=== PATIENT | female | born 1990 | race American Indian/Alaskan Native ===

== ENCOUNTER 2018-09-04 18:50 | Emergency (ER) | payer OTHER ==
[2018-09-04 18:58] VITALS: BP 143/87
--- NOTE | 2018-09-04 19:44 | Emergency Department Report ---
Abscess Boil HPI - HPI Chief Complaint: Skin/Abscess/Foreign Body Stated Complaint: BOIL Time Seen by Provider: 09/04/18 19:39 Duration: 5 Days Location: Lower Extremity Severity: Moderate History: Yes Pain, Yes Purulent Drainage, No Fever, No Numbness, No Foreign Body, No Previous History, No Insect Bite HPI: Patient 28-year-old [place] female history obesity hypertension diabetes abscesses recurrent presents for left thigh abscess , 2 cm for the past 3 days similar to pain. Drainage is no fever no chills requesting I&D of abscess currently on amoxicillin history of allergy to clindamycin Home Medications: Previous Rx's Medication Instructions Recorded Last Taken Type Sulfamethoxazole/Trimethoprim 1 each PO BID 14 Days #28 tablet 09/04/18 Unknown Rx [Bactrim DS TAB] traMADol [Ultram] 50 mg PO Q6HR PRN #12 tablet 09/04/18 Unknown Rx Allergies/Adverse Reactions: Allergies Allergy/AdvReac Type Severity Reaction Status Date / Time clindamycin Allergy Unknown Verified 09/04/18 18:58 ED Review of Systems ROS: Stated complaint: BOIL Other details as noted in HPI Constitutional: denies: chills, fever Eyes: denies: eye pain, eye discharge, vision change ENT: denies: ear pain, throat pain Respiratory: denies: cough, shortness of breath, wheezing Cardiovascular: denies: chest pain, palpitations Endocrine: no symptoms reported Gastrointestinal: denies: abdominal pain, nausea, diarrhea Genitourinary: denies: urgency, dysuria, discharge Musculoskeletal: denies: back pain, joint swelling, arthralgia Skin: lesions (abscess left inner thigh x 5 days ) ED Past Medical Hx - Past Medical History Hx Diabetes: Yes - Surgical History Past Surgical History?: No - Social History Smoking Status: Never Smoker Substance Use Type: None - Medications Home Medications: Home Medications Medication Instructions Recorded Confirmed Last Taken Type Sulfamethoxazole/Trimethoprim 1 each PO BID 14 Days #28 tablet 09/04/18 Unknown Rx [Bactrim DS TAB] traMADol [Ultram] 50 mg PO Q6HR PRN #12 tablet 09/04/18 Unknown Rx ED Abscess Boil Physical Exam - Exam General: Vital signs noted. No distress. Alert and acting appropriately. Size: 2 cm Exam: Yes Tenderness, Yes Fluctuance, Yes Surrounding Cellulites/Erythema, Yes Normal Neurologic Exam, Yes Normal Circulation, No Lymphangitis, No Crepitation, No Heart Murmur Exam: left inner thigh abscess 1x2 cm erythema fluctant, no fever. no drainage I & D Note - I & D Note I & D Note: Left thigh abscess 1 x 2 cm fluctuant erythema pain with Betadine solution anesthesia 1% lidocaine plain 2 mL incision with 11 blade scalpel 1 moderate purulent output . wound irrigated wtih 60 mL of sterile saline patient refuses back packing sterile dressing applied mildly bleeding is controlled p atient given wound care instructions patient verbalized understanding of same patient tolerated procedure with minimal distress ED Course Vital Signs 09/04/18 18:53 Temperature 98.5 F Pulse Rate 113 H Respiratory 18 Rate Blood Pressure 143/87 O2 Sat by Pulse 98 Oximetry Critical care attestation.: If time is entered above; I have spent that time in minutes in the direct care of this critically ill patient, excluding procedure time. ED Medical Decision Making - Medical Decision Making Left thigh abscess see procedure note we discussed controlled patient given wound care instructions prescribed Bactrim by mouth twice a day for 14 days patient will follow with PCP in 2 days for wound check sitz baths daily dressing changes return to emergency department should symptoms worsen vital signs are noted patient refuses packing refuses IV fluids given pain medication and first dose of by mouth antibiotics patient DC'd home in stable condition at this time ED Disposition Clinical Impression: Abscess Disposition: DC-01 TO HOME OR SELFCARE Is pt being admited?: No Does the pt Need Aspirin: No Condition: Stable Instructions: Abscess (ED) Prescriptions: Sulfamethoxazole/Trimethoprim [Bactrim DS TAB] 1 each PO BID 14 Days #28 tablet traMADol [Ultram] 50 mg PO Q6HR PRN #12 tablet PRN Reason: Pain Referrals: PRIMARY CARE, [Primary Care Provider] - 3-5 Days [facility] [Outside] - 3-5 Days Forms: Work/School Release Form(ED) Time of Disposition: 19:50
[2018-09-04] MEDS ORDERED: ULTRAM PO ONE (19:45)
[2018-09-04] MEDS ORDERED: BACTRIM DS PO ONE (19:51)
[2018-09-04] MEDS ORDERED: BACTRIM DS ONE (19:55)
[2018-09-04] MEDS ORDERED: BACTRIM DS PO SCH (22:00)
== END 2018-09-04 19:59 | disposition home or self-care (01) ==
LOC: ED 18:50
DX: L02.416 Cutaneous abscess of left lower limb (principal); Z88.1 Allergy status to other antibiotic agents
CPT/HCPCS: 99282

== ENCOUNTER 2019-06-08 12:42 | Emergency (ER) | payer SELFPAY ==
[2019-06-08 13:53] VITALS: BP 138/95
--- NOTE | 2019-06-08 13:59 | Emergency Department Report ---
ED ENT HPI - General Chief complaint: Skin/Abscess/Foreign Body Stated complaint: LFT SIDE TOOTH ABCESS/PAIN Time Seen by Provider: 06/08/19 13:50 Source: patient Mode of arrival: Ambulatory Limitations: No Limitations - History of Present Illness MD complaint: tooth pain -: week(s) (2) Location: tooth # Severity: moderate Quality: aching, dull Consistency: constant Improves with: none Worsens with: none Context- Dental: history of dental caries, trauma Associated Symptoms: toothache. denies: sore throat, tinnitus, discharge from ear, rhinorrhea - Related Data Previous Rx's Medication Instructions Recorded Last Taken Type Sulfamethoxazole/Trimethoprim 1 each PO BID 14 Days #28 tablet 09/04/18 Unknown Rx [Bactrim DS TAB] traMADol [Ultram] 50 mg PO Q6HR PRN #12 tablet 09/04/18 Unknown Rx Amoxicillin [Amoxicillin TAB] 875 mg PO BID #20 tablet 06/08/19 Unknown Rx Chlorhexidine Mouthwash [Peridex] 15 ml MM BID #1 bottle 06/08/19 Unknown Rx Ketorolac [Toradol] 10 mg PO Q6H PRN #15 tablet 06/08/19 Unknown Rx Lidocaine Viscous 2% 5 ml MM Q3H PRN #120 udc 06/08/19 Unknown Rx Allergies Allergy/AdvReac Type Severity Reaction Status Date / Time clindamycin Allergy Unknown Verified 09/04/18 18:58 ED Dental HPI - General Chief complaint: Skin/Abscess/Foreign Body Stated complaint: LFT SIDE TOOTH ABCESS/PAIN Time Seen by Provider: 06/08/19 13:50 Source: patient Mode of arrival: Ambulatory Limitations: No Limitations - Related Data Previous Rx's Medication Instructions Recorded Last Taken Type Sulfamethoxazole/Trimethoprim 1 each PO BID 14 Days #28 tablet 09/04/18 Unknown Rx [Bactrim DS TAB] traMADol [Ultram] 50 mg PO Q6HR PRN #12 tablet 09/04/18 Unknown Rx Amoxicillin [Amoxicillin TAB] 875 mg PO BID #20 tablet 06/08/19 Unknown Rx Chlorhexidine Mouthwash [Peridex] 15 ml MM BID #1 bottle 06/08/19 Unknown Rx Ketorolac [Toradol] 10 mg PO Q6H PRN #15 tablet 06/08/19 Unknown Rx Lidocaine Viscous 2% 5 ml MM Q3H PRN #120 udc 06/08/19 Unknown Rx Allergies Allergy/AdvReac Type Severity Reaction Status Date / Time clindamycin Allergy Unknown Verified 09/04/18 18:58 ED Review of Systems ROS: Stated complaint: LFT SIDE TOOTH ABCESS/PAIN Other details as noted in HPI Comment: All other systems reviewed and negative ED Past Medical Hx - Past Medical History Previous Medical History?: Yes Hx Diabetes: Yes - Surgical History Past Surgical History?: No - Social History Smoking Status: Never Smoker Substance Use Type: Alcohol - Medications Home Medications: Home Medications Medication Instructions Recorded Confirmed Last Taken Type Sulfamethoxazole/Trimethoprim 1 each PO BID 14 Days #28 tablet 09/04/18 Unknown Rx [Bactrim DS TAB] traMADol [Ultram] 50 mg PO Q6HR PRN #12 tablet 09/04/18 Unknown Rx Amoxicillin [Amoxicillin TAB] 875 mg PO BID #20 tablet 06/08/19 Unknown Rx Chlorhexidine Mouthwash [Peridex] 15 ml MM BID #1 bottle 06/08/19 Unknown Rx Ketorolac [Toradol] 10 mg PO Q6H PRN #15 tablet 06/08/19 Unknown Rx Lidocaine Viscous 2% 5 ml MM Q3H PRN #120 udc 06/08/19 Unknown Rx ED Physical Exam - General Limitations: No Limitations General appearance: alert, in no apparent distress - Head Head exam: Present: atraumatic, normocephalic - Eye Eye exam: Present: normal appearance - ENT ENT exam: Present: mucous membranes moist, other (dental caries with dental fracture with adjacent gingival erythema with tender onpalpation. airway patent) - Neck Neck exam: Present: normal inspection - Respiratory Respiratory exam: Present: normal lung sounds bilaterally. Absent: respiratory distress - Cardiovascular Cardiovascular Exam: Present: regular rate, normal rhythm. Absent: systolic murmur, diastolic murmur, rubs, gallop - GI/Abdominal GI/Abdominal exam: Present: soft, normal bowel sounds - Extremities Exam Extremities exam: Present: normal inspection - Back Exam Back exam: Present: normal inspection - Neurological Exam Neurological exam: Present: alert, oriented X3 - Psychiatric Psychiatric exam: Present: normal affect, normal mood - Skin Skin exam: Present: warm, dry, intact, normal color. Absent: rash ED Course Vital Signs 06/08/19 13:50 Temperature 98.6 F Pulse Rate 96 H Respiratory 16 Rate Blood Pressure 138/95 O2 Sat by Pulse 96 Oximetry Critical care attestation.: If time is entered above; I have spent that time in minutes in the direct care of this critically ill patient, excluding procedure time. ED Disposition Clinical Impression: Dentalgia, Dental caries Disposition: - TO HOME OR SELFCARE Is pt being admited?: No Does the pt Need Aspirin: No Condition: Stable Instructions: Toothache (ED), Dental Caries (ED) Prescriptions: Amoxicillin [Amoxicillin TAB] 875 mg PO BID #20 tablet Lidocaine Viscous 2% 5 ml MM Q3H PRN #120 udc PRN Reason: Pain, Moderate (4-6) Chlorhexidine Mouthwash [Peridex] 15 ml MM BID #1 bottle Ketorolac [Toradol] 10 mg PO Q6H PRN #15 tablet PRN Reason: Pain Referrals: [facility] [Outside] - 3-5 Days
== END 2019-06-08 15:31 | disposition home or self-care (01) ==
LOC: ED 12:42
DX: K02.9 Dental caries, unspecified (principal); E11.9 Type 2 diabetes mellitus without complications
CPT/HCPCS: 99282

== ENCOUNTER 2020-01-17 11:04 | Emergency (ER) | payer OTHER ==
[2020-01-17 11:22] VITALS: BP 116/73
--- NOTE | 2020-01-17 11:49 | Event Note ---
ED Screening Note ED Screening Note: states that she was constipated for two days states she took a laxative has now been having diarrhea she states now she has rectal pain she states there is an odor to her diarrhea she denies any rectal bleeding she denies any hematochezia no dysuria PMHx pre DM allergy: clindamycin LNMP: 3 months, irregular cycles This initial assessment/diagnostic orders/clinical plan/treatment(s) is/are subject to change based on patients health status, clinical progression and re- assessment by fellow clinical providers in the ED. Further treatment and workup at subsequent clinical providers discretion. Patient/guardian urged not to elope from the ED as their condition may be serious if not clinically assessed and managed. Initial orders include: labs, UA
[2020-01-17 12:26] LABS: Basophils # (Auto) 0.1 K/mm3 (0.0-0.1); Basophils % (Auto) 0.9 % (0.0-1.8); Eosinophils % (Auto) 0.2 % (0.0-4.3); Lymphocytes # (Auto) 3.1 K/mm3 (1.2-5.4); Lymphocytes % (Auto) 21.7 % (13.4-35.0); Mean Corpuscular HGB Conc 30 % (30-34); Mean Corpuscular Volume 79 fl (79-97); Monocytes # (Auto) 0.9 K/mm3 (0.0-0.8); Monocytes % (Auto) 6.2 % (0.0-7.3); Platelet Count 321 K/mm3 (140-440); Red Blood Count 5.11 M/mm3 (3.65-5.03)
[2020-01-17 12:30] LABS: Bacteria,Urine 1+ /HPF (Negative); Bilirubin,Urine NEG (Negative); Blood,Urine MOD (Negative); Color,Urine Yellow (Yellow); Mucus,Urine 2+ /HPF; Protein,Urine <15 mg/dL mg/dL (Negative); Urobilinogen,Urine < 2.0 mg/dL (<2.0)
[2020-01-17 12:39] LABS: Hematocrit 40.3 % (30.3-42.9); Hemoglobin 12.2 gm/dl (10.1-14.3)
[2020-01-17 12:47] LABS: Alanine Aminotransferase 19 units/L (7-56); Albumin 3.7 g/dL (3.9-5); BUN/Creatinine Ratio 18; Blood Urea Nitrogen 9 mg/dL (7-17); Calcium 9.5 mg/dL (8.4-10.2); Hemolysis Index 2
--- NOTE | 2020-01-17 14:11 | Emergency Department Report ---
ED Abdominal Pain HPI - General Chief Complaint: Rectal Pain Stated Complaint: ABD PAIN/ PUI?: No Time Seen by Provider: 01/17/20 11:45 Source: patient Mode of arrival: Ambulatory Limitations: No Limitations - History of Present Illness Initial Comments: Patient is a very pleasant 29-year-old -Irish female that comes to the ER today complaining of rectal pain. Patient states that she had constipation for several days and then her mother gave her chocolate Ex-Lax. She states she then got some diarrhea and has had some rectal pain associated with it. Patient has no history of hemorrhoids. Patient denies bloody stools. Patient denies chest pain, shortness of breath, fever, chills, nausea or vomiting. She denies known exposure to somebody with COVID or other infectious disease. Patient's last menstrual cycle was 3 months ago. Patient is obese. She states that she has been told she is prediabetic. Rogers francine, she was never given any instructions or medications. Her mother does have a history of diabetes. Severity: mild Severity scale (0 -10): 8 Associated Symptoms: diarrhea, constipation. denies: denies other symptoms, nausea, vomiting, fever, chills, dysuria, hematemesis, hematochezia, melena, hematuria, anorexia, syncope - Related Data LMP (females 10-50): other Previous Rx's Medication Instructions Recorded Last Taken Type Fluconazole (Nf) [Diflucan TAB] 150 mg PO ONCE #1 tablet 01/17/20 Unknown Rx Sulfamethoxazole/Trimethoprim 1 each PO BID #10 tablet 01/17/20 Unknown Rx [Bactrim DS TAB] metFORMIN [Glucophage] 500 mg PO BID #20 tablet 01/17/20 Unknown Rx Allergies Allergy/AdvReac Type Severity Reaction Status Date / Time clindamycin Allergy Unknown Verified 01/17/20 11:18 ED Review of Systems ROS: Stated complaint: ABD PAIN/ Other details as noted in HPI Comment: All other systems reviewed and negative ED Past Medical Hx - Past Medical History Previous Medical History?: Yes Hx Diabetes: No (pre dm) Additional medical history: obese - Surgical History Past Surgical History?: No - Family History Family history: other (mom has dm ii; dad htn) - Social History Smoking Status: Never Smoker Substance Use Type: Alcohol - Medications Home Medications: Home Medications Medication Instructions Recorded Confirmed Last Taken Type Fluconazole (Nf) [Diflucan TAB] 150 mg PO ONCE #1 tablet 01/17/20 Unknown Rx Sulfamethoxazole/Trimethoprim 1 each PO BID #10 tablet 01/17/20 Unknown Rx [Bactrim DS TAB] metFORMIN [Glucophage] 500 mg PO BID #20 tablet 01/17/20 Unknown Rx ED Physical Exam - General Limitations: No Limitations General appearance: alert, in no apparent distress - Head Head exam: Present: atraumatic, normocephalic - Eye Eye exam: Present: normal appearance - ENT ENT exam: Present: mucous membranes moist - Neck Neck exam: Present: normal inspection - Respiratory Respiratory exam: Present: normal lung sounds bilaterally. Absent: respiratory distress - Cardiovascular Cardiovascular Exam: Present: regular rate, normal rhythm. Absent: systolic murmur, diastolic murmur, rubs, gallop - GI/Abdominal GI/Abdominal exam: Present: soft, normal bowel sounds - Extremities Exam Extremities exam: Present: normal inspection - Back Exam Back exam: Present: normal inspection - Neurological Exam Neurological exam: Present: alert, oriented X3 - Psychiatric Psychiatric exam: Present: normal affect, normal mood - Skin Skin exam: Present: warm, dry, intact, normal color. Absent: rash ED Course Vital Signs 01/17/20 11:20 Temperature 99.1 F Pulse Rate 82 Respiratory 18 Rate Blood Pressure 116/73 [Left] O2 Sat by Pulse 98 Oximetry ED Medical Decision Making - Lab Data Result diagrams: 01/17/20 12:09 01/17/20 12:09 - Radiology Data Radiology results: report reviewed, image reviewed ro pna - Medical Decision Making Lab Results 01/17/20 01/17/20 01/17/20 Range/Units 12:09 12:09 12:09 WBC 14.3 H (4.5-11.0) K/mm3 RBC 5.11 H (3.65-5.03) M/mm3 Hgb 12.2 (10.1-14.3) gm/dl Hct 40.3 (30.3-42.9) % MCV 79 (79-97) fl MCH 24 L (28-32) pg MCHC 30 (30-34) % RDW 14.0 (13.2-15.2) % Plt Count 321 (140-440) K/mm3 Lymph % (Auto) 21.7 (13.4-35.0) % [place] % (Auto) 6.2 (0.0-7.3) % Eos % (Auto) 0.2 (0.0-4.3) % Baso % (Auto) 0.9 (0.0-1.8) % Lymph # 3.1 (1.2-5.4) K/mm3 [place] # 0.9 H (0.0-0.8) K/mm3 Eos # 0.0 (0.0-0.4) K/mm3 Baso # 0.1 (0.0-0.1) K/mm3 Seg Neutrophils % 71.0 H (40.0-70.0) % Seg Neutrophils # 10.2 H (1.8-7.7) K/mm3 VBG pH (7.320-7.420) Sodium 136 L (137-145) mmol/L Potassium 4.1 (3.6-5.0) mmol/L Chloride 97.5 L (98-107) mmol/L Carbon Dioxide 25 (22-30) mmol/L Anion Gap 18 mmol/L BUN 9 (7-17) mg/dL Creatinine 0.5 L (0.7-1.2) mg/dL Estimated GFR > 60 ml/min BUN/Creatinine Ratio 18 % Glucose 312 H (65-100) mg/dL POC Glucose (70-105) Calcium 9.5 (8.4-10.2) mg/dL Total Bilirubin 0.40 (0.1-1.2) mg/dL AST 14 (5-40) units/L ALT 19 (7-56) units/L Alkaline Phosphatase 103 (35-129) units/L Total Protein 7.5 (6.3-8.2) g/dL Albumin 3.7 L (3.9-5) g/dL Albumin/Globulin Ratio 1.0 % Lipase 20 (13-60) units/L HCG, Qual (Negative) Urine Color Yellow (Yellow) Urine Turbidity Cloudy (Clear) Urine pH 5.0 (5.0-7.0) Ur Specific Mobile 1.028 (1.003-1.030) Urine Protein <15 mg/dl (Negative) mg/dL Urine Glucose (UA) >=500 (Negative) mg/dL Urine Ketones Neg (Negative) mg/dL Urine Blood Mod (Negative) Urine Nitrite Neg (Negative) Urine Bilirubin Neg (Negative) Urine Urobilinogen < 2.0 (<2.0) mg/dL Ur Leukocyte Esterase Lg (Negative) Urine WBC (Auto) 21.0 H (0.0-6.0) /HPF Urine RBC (Auto) 10.0 (0.0-6.0) /HPF U Epithel Cells (Auto) 16.0 H (0-13.0) /HPF Urine Bacteria (Auto) 1+ (Negative) /HPF Urine Mucus 2+ /HPF 01/17/20 01/17/20 01/17/20 Range/Units 12:09 14:41 15:31 WBC (4.5-11.0) K/mm3 RBC (3.65-5.03) M/mm3 Hgb (10.1-14.3) gm/dl Hct (30.3-42.9) % MCV (79-97) fl MCH (28-32) pg MCHC (30-34) % RDW (13.2-15.2) % Plt Count (140-440) K/mm3 Lymph % (Auto) (13.4-35.0) % [place] % (Auto) (0.0-7.3) % Eos % (Auto) (0.0-4.3) % Baso % (Auto) (0.0-1.8) % Lymph # (1.2-5.4) K/mm3 [place] # (0.0-0.8) K/mm3 Eos # (0.0-0.4) K/mm3 Baso # (0.0-0.1) K/mm3 Seg Neutrophils % (40.0-70.0) % Seg Neutrophils # (1.8-7.7) K/mm3 VBG pH 7.350 (7.320-7.420) Sodium (137-145) mmol/L Potassium (3.6-5.0) mmol/L Chloride (98-107) mmol/L Carbon Dioxide (22-30) mmol/L Anion Gap mmol/L BUN (7-17) mg/dL Creatinine (0.7-1.2) mg/dL Estimated GFR ml/min BUN/Creatinine Ratio % Glucose (65-100) mg/dL POC Glucose 261 H (70-105) Calcium (8.4-10.2) mg/dL Total Bilirubin (0.1-1.2) mg/dL AST (5-40) units/L ALT (7-56) units/L Alkaline Phosphatase (35-129) units/L Total Protein (6.3-8.2) g/dL Albumin (3.9-5) g/dL Albumin/Globulin Ratio % Lipase (13-60) units/L HCG, Qual Negative (Negative) Urine Color (Yellow) Urine Turbidity (Clear) Urine pH (5.0-7.0) Ur Specific Mobile (1.003-1.030) Urine Protein (Negative) mg/dL Urine Glucose (UA) (Negative) mg/dL Urine Ketones (Negative) mg/dL Urine Blood (Negative) Urine Nitrite (Negative) Urine Bilirubin (Negative) Urine Urobilinogen (<2.0) mg/dL Ur Leukocyte Esterase (Negative) Urine WBC (Auto) (0.0-6.0) /HPF Urine RBC (Auto) (0.0-6.0) /HPF U Epithel Cells (Auto) (0-13.0) /HPF Urine Bacteria (Auto) (Negative) /HPF Urine Mucus /HPF Vital Signs 01/17/20 11:20 Temperature 99.1 F Pulse Rate 82 Respiratory 18 Rate Blood Pressure 116/73 [Left] O2 Sat by Pulse 98 Oximetry VSS NO TACHYCARDIA OR HYPOTENSION LABS NOTED UA NOTED XRAY NOTED BG NOTED- REPEATED BY RN. INSULIN GIVEN/ NS X 2 L ROCEPHIN FOR UTI PT REPORTS HX VAGINITIS WITH ANTIBIOTICS PT EDUCATED ON FINDINGS OF TODAYS VISIT. SHE HAS BEEN EDUCATED ON DM II AND HOW SHE CAN CONTROL IT. SHE STATES HER MOM LOST A LOT OF WEIGHT AND IS OFF MEDS. PT BEING DC HOME WITH FOLLOW UP PLAN OF CARE AND PCP FOLLOW UP. SHE UNDERSTANDS THAT IF SHE IGNORES THIS SHE COULD END UP IN A DIABETIC COMA OR EVEN . - Differential Diagnosis ro constiption/ hemorrhoid Critical care attestation.: If time is entered above; I have spent that time in minutes in the direct care of this critically ill patient, excluding procedure time. ED Disposition Clinical Impression: Diabetes mellitus, Hyperglycemia, Obesity, UTI (urinary tract infection) Disposition: DC-01 TO HOME OR SELFCARE Is pt being admited?: No Does the pt Need Aspirin: No Condition: Stable Instructions: Diabetic Hypoglycemia (ED), Diabetes Mellitus Type 2 in Adults (ED), Meal Planning with Diabetes Exchanges (DC) Additional Instructions: DIABETIC DIET- SEE ATTACHED INFORMATION [facility] IS A GOOD WEBSITE FOR MORE INFO EXERCISE DAILY MEDS ORDERED TODAY STAY WELL HYDRATED WITH WATER FOLLOW UP WITH PCP PAVITHRA REFERRAL PROVIDED BELOW USE OTC ANUSOL FOR RECTAL PAIN Prescriptions: Sulfamethoxazole/Trimethoprim [Bactrim DS TAB] 1 each PO BID #10 tablet Fluconazole (Nf) [Diflucan TAB] 150 mg PO ONCE #1 tablet metFORMIN [Glucophage] 500 mg PO BID #20 tablet Referrals: HOUSTON BROOKS MD [Staff Physician] - 3-5 Days Time of Disposition: 15:28
[2020-01-17] MEDS ORDERED: SODIUM CHLORIDE 0.9% 1000 ML 1,000 ML IV ONE ×2 (14:13→15:40)
[2020-01-17] MEDS ORDERED: cefTRIAXone/NS 1 GM/50 ML 1 GM/50 ML BAG IV ONE (14:13)
--- NOTE | 2020-01-17 14:37 | XRay Report ---
ABDOMEN 1 VIEW(S) INDICATION / CLINICAL INFORMATION: abd pain. COMPARISON: None available. FINDINGS: TUBES / LINES: None. BOWEL GAS PATTERN: No significant abnormality. FREE AIR / EXTRALUMINAL GAS: None seen. ADDITIONAL FINDINGS: No significant abnormality on the included chest radiograph. Punctate phleboliths are noted in the pelvis. IMPRESSION: 1. No significant abnormality. Signer Name: Vishal Heart MD Signed: 01/17/2020 2:33 PM Workstation Name: [id number]
[2020-01-17] MEDS ORDERED: INSULIN REGULAR, HUMAN 100 UNITS/1 ML IV ONE (15:21)
== END 2020-01-17 18:36 | disposition home or self-care (01) ==
LOC: ED 11:04
DX: E11.65 Type 2 diabetes mellitus with hyperglycemia (principal); E66.9 Obesity, unspecified; N39.0 Urinary tract infection, site not specified; Z88.8 Allergy status to other drugs, medicaments and biological substances; Z68.33 Body mass index [BMI] 33.0-33.9, adult; Z79.899 Other long term (current) drug therapy
CPT/HCPCS: 36415; 74022; 80053; 81001; 82010; 82805; 82962; 83690; 84703; 85025; 87086; 96361; 96365; 96375; 99284; J0696; J7030; J1815

== ENCOUNTER 2021-04-20 12:07 | Emergency (ER) | payer BC, OTHER ==
[2021-04-20 12:23] VITALS: BP 144/92
[2021-04-20] MEDS ORDERED: ACETAMINOPHEN 325 MG TAB PO ONE (12:45)
[2021-04-20] MEDS ORDERED: IBUPROFEN 400 MG TAB PO ONE (12:45)
--- NOTE | 2021-04-20 12:50 | Emergency Department Report ---
ED General Adult HPI - General Chief complaint: Dental/Oral Stated complaint: KNOT UNDER JAW PUI?: No Source: patient, RN notes reviewed, old records reviewed Mode of arrival: Ambulatory Limitations: No Limitations - History of Present Illness Initial comments: The patient was evaluated in the emergency department for symptoms described in the history of present illness. He/she was evaluated in the context of the global COVID-19 pandemic, which necessitated consideration that the patient might be at risk for infection with the virus that causes COVID-19. Institutional protocols and algorithms that pertain to the evaluation of patients at risk for COVID-19 are in a state of rapid change based on information released by regulatory bodies including the CDC and federal and state organizations. These policies and algorithms were followed during the patient's care in the emergency department. Please note that these policies, procedures and recommendations changed on a rapid basis. The patient is a 30-year-old female who reports that she is not . She presents to the ER today with complaints of intermittent left submandibular/sublingual swelling over the past few days, pain over a chipped tooth, #19/20, and left-sided nontraumatic ear pain. She has no stridor. She has no loss of taste or smell. She is sensitive to hot and cold. The patient has not been able to follow-up with a dentist. Her last cleaning was 2 to 3 years ago. She brushes her teeth on a daily basis. She flosses infrequently. Denies headache, midline neck pain, chest pain, abdominal pain, new/different shortness of breath. Has taking minimal [id number]-srewsbn medications. -: Gradual, days(s) Location: mouth Radiation: non-radiation Quality: aching Consistency: constant Improves with: rest Worsens with: eating - Related Data Previous Rx's Medication Instructions Recorded Last Taken Type metFORMIN [Glucophage] 500 mg PO BID #20 tablet 01/17/20 Unknown Rx Acetaminophen [Non-Aspirin Extra 500 mg PO Q6HR PRN #30 tablet 04/20/21 Unknown Rx Strength] Chlorhexidine Mouthwash [Peridex] 15 ml MM BID #1 bottle 04/20/21 Unknown Rx Ibuprofen [Motrin] 600 mg PO Q8H PRN #30 tablet 04/20/21 Unknown Rx Allergies Allergy/AdvReac Type Severity Reaction Status Date / Time clindamycin Allergy Unknown Verified 01/17/20 11:18 ED Review of Systems ROS: Stated complaint: KNOT UNDER JAW Other details as noted in HPI Constitutional: denies: fever Eyes: denies: vision change ENT: ear pain, dental pain. denies: throat pain, hearing loss, epistaxis, congestion Respiratory: denies: cough Cardiovascular: denies: chest pain Psychiatric: anxiety ED Past Medical Hx - Past Medical History Previous Medical History?: Yes Hx Diabetes: Yes (pre dm) Additional medical history: obese - Surgical History Past Surgical History?: No - Social History Smoking Status: Never Smoker Substance Use Type: Alcohol - Medications Home Medications: Home Medications Medication Instructions Recorded Confirmed Last Taken Type metFORMIN [Glucophage] 500 mg PO BID #20 tablet 01/17/20 Unknown Rx Acetaminophen [Non-Aspirin Extra 500 mg PO Q6HR PRN #30 tablet 04/20/21 Unknown Rx Strength] Chlorhexidine Mouthwash [Peridex] 15 ml MM BID #1 bottle 04/20/21 Unknown Rx Ibuprofen [Motrin] 600 mg PO Q8H PRN #30 tablet 04/20/21 Unknown Rx ED Physical Exam - General Limitations: No Limitations General appearance: alert, in no apparent distress, obese - Head Head exam: Present: atraumatic, normocephalic - Eye Eye exam: Present: normal appearance, EOMI. Absent: nystagmus - ENT ENT exam: Present: normal exam, normal orophraynx (Patient is not stridulous. There is no elevation of the base of the tongue. The uvula is midline. The soft palate appears to be unremarkable. There is gingival irritation diffusely. There is tenderness to percussion over tooth #19/20. There is a partially cracked tooth 19/20.), mucous membranes moist, TM's normal bilaterally, normal external ear exam, other (There is no mastoid tenderness. TM clear bilaterally.) - Neck Neck exam: Present: normal inspection, lymphadenopathy (Left-sided sublingual/ submandibular adenopathy). Absent: tenderness, meningismus - Respiratory Respiratory exam: Present: normal lung sounds bilaterally. Absent: respiratory distress, wheezes, rales, rhonchi, stridor - Cardiovascular Cardiovascular Exam: Present: regular rate, normal rhythm, normal heart sounds. Absent: bradycardia, tachycardia, irregular rhythm, systolic murmur, diastolic murmur, rubs, gallop - GI/Abdominal GI/Abdominal exam: Present: soft. Absent: distended, tenderness, guarding, rebound, rigid, pulsatile mass - Extremities Exam Extremities exam: Present: normal inspection, full ROM, other (2+ pulses noted in the bilateral upper extremities. There is normal bony tenderness. The mus cular compartments are soft. The pelvis is stable. The patient walks with a steady gait). Absent: pedal edema, calf tenderness - Back Exam Back exam: Present: normal inspection, full ROM. Absent: tenderness, CVA tenderness (R), CVA tenderness (L), paraspinal tenderness, vertebral tenderness - Neurological Exam Neurological exam: Present: alert, oriented X3, normal gait, other (No facial droop. Tongue midline. Extraocular movements intact bilaterally. Facial sensation intact to light touch in V1, V2, V3 distribution bilaterally. 5 and a 5 strength in 4 extremities. Sensation intact to light touch in 4 extremities.). Absent: motor sensory deficit - Psychiatric Psychiatric exam: Present: normal affect, normal mood, anxious - Skin Skin exam: Present: warm, dry, intact, normal color. Absent: rash ED Course Vital Signs 04/20/21 12:22 Temperature 98.7 F Pulse Rate 104 H Respiratory 20 Rate Blood Pressure 144/92 O2 Sat by Pulse 99 Oximetry ED Medical Decision Making - Lab Data Vital Signs 04/20/21 12:22 Temperature 98.7 F Pulse Rate 104 H Respiratory 20 Rate Blood Pressure 144/92 O2 Sat by Pulse 99 Oximetry - Medical Decision Making Differential diagnosis, including but not limited to: Dentalgia, gingivitis, r eactive adenopathy Assessment and plan: 30-year-old female who is afebrile with reassuring vital signs, with resolved tachycardia, with probable dentalgia, gingivitis, and reactive adenopathy. The patient is not stridulous and she is protecting her airway. Discussed proper oral hygiene, including brushing teeth twice daily, flossing once daily, warm compresses, pain medication, chlorhexidine antibiotic mouthwash, and outpatient dental follow-up. Discussed this plan of care with the patient. She has articulated understanding. Return precautions are reviewed. Critical care attestation.: If time is entered above; I have spent that time in minutes in the direct care of this critically ill patient, excluding procedure time. ED Disposition Clinical Impression: Adenopathy, cervical, Dentalgia Disposition: HOME / SELF CARE / HOMELESS Is pt being admited?: No Does the pt Need Aspirin: No Condition: Good Instructions: Diet and Dental Disease, Lymphadenopathy Additional Instructions: Advance diet as tolerated. Please brush her teeth twice daily. Floss on a daily basis. Avoid consumption of processed foods, simple carbohydrates and excessive sugar. Take the pain medication as directed, and chlorhexidine antibiotic mouthwash as directed. Follow-up with a dentist within the next 3 to 5 days. Patient may apply warm compresses as often as needed to the left side of the neck for lymph nodes which are likely reactive to underlying dental disease. Please return to the emergency room right away with inability to speak, inability to breathe, change in mental status, confusion, new pain, worsened pain, migration of pain, or any new, worsened or different symptoms not present on the initial emergency room evaluation. Referrals: [facility] [Outside] - 3-5 Days Forms: Work/School Release Form(ED)
== END 2021-04-20 14:18 | disposition home or self-care (01) ==
LOC: ED 12:07
DX: R59.9 Enlarged lymph nodes, unspecified (principal); K08.89 Other specified disorders of teeth and supporting structures; E11.8 Type 2 diabetes mellitus with unspecified complications; E66.9 Obesity, unspecified; Z88.1 Allergy status to other antibiotic agents
CPT/HCPCS: 99282

== ENCOUNTER 2021-05-14 10:59 | Emergency (ER) | payer BC ==
--- NOTE | 2021-05-14 13:03 | Emergency Department Report ---
ED Female HPI - General Chief complaint: Urogenital-Female Stated complaint: VAGINAL INFLAMMATION Time Seen by Provider: 05/14/21 12:10 Source: patient Mode of arrival: Ambulatory Limitations: No Limitations - History of Present Illness Initial comments: 31-year-old female with type 2 diabetes presents to the ER today with complaints of vaginal pain. Patient states that about 1 week ago she started having yeast infection type symptoms with thick cottage discharge vaginal discharge and vaginal itching. Patient states that she has been doing a lot of vaginal itching to the point now she has open sores on her vaginal area, it is swollen and significantly painful to the point where she is unable to sit. She states that she did not try any rwmz-vsz-diwddya yeast treatment noted she go to her doctor for any treatment. She states that her menstrual cycle started 3 days ago, and ended yesterday. She is not currently on any control. She denies any abdominal or pelvic pain or back pain. She admits that she did have sexual intercourse with a new partner about 2 weeks ago. - Related Data Previous Rx's Medication Instructions Recorded Last Taken Type metFORMIN [Glucophage] 500 mg PO BID #20 tablet 01/17/20 Unknown Rx Acetaminophen/Codeine [Tylenol 1 tab PO Q6H PRN #12 tab 05/14/21 Unknown Rx /Codeine # 3 tab] DOXYCYCLINE Hyclate [Vibramycin 100 mg PO Q12HR #14 capsule 05/14/21 Unknown Rx CAP] Fluconazole [Diflucan TAB] 200 mg PO QDAY #1 tablet 05/14/21 Unknown Rx Ibuprofen [Motrin 600 MG tab] 600 mg PO Q8H PRN #30 tablet 05/14/21 Unknown Rx Valacyclovir HCl [Valtrex] 1,000 mg PO Q12H #20 tablet 05/14/21 Unknown Rx Allergies Allergy/AdvReac Type Severity Reaction Status Date / Time clindamycin Allergy Unknown Verified 01/17/20 11:18 ED Review of Systems ROS: Stated complaint: VAGINAL INFLAMMATION Other details as noted in HPI Comment: All other systems reviewed and negative Constitutional: denies: chills, fever Eyes: denies: eye pain, eye discharge, vision change ENT: denies: ear pain, throat pain, dental pain, hearing loss, epistaxis, congestion Respiratory: denies: cough, orthopnea, shortness of breath, SOB with exertion, SOB at rest Cardiovascular: denies: chest pain, palpitations, dyspnea on exertion, edema, syncope, paroxysmal nocturnal dyspnea Gastrointestinal: denies: abdominal pain, nausea, diarrhea, constipation, hematemesis, melena, hematochezia Genitourinary: discharge, other (Vaginal pain and swelling). denies: urgency, dysuria, frequency, hematuria, abnormal menses, dyspareunia Musculoskeletal: denies: back pain, joint swelling, arthralgia, myalgia Skin: denies: rash, lesions, change in color, change in hair/nails, pruritus Neurological: denies: headache, weakness, numbness, paresthesias, confusion, abnormal gait, vertigo Psychiatric: denies: anxiety, depression, auditory hallucinations, visual hallucinations, homicidal thoughts, suicidal thoughts Hematological/Lymphatic: denies: easy bleeding, easy bruising, swollen glands ED Past Medical Hx - Past Medical History Hx Diabetes: Yes (pre dm) Additional medical history: obese - Social History Smoking Status: Never Smoker Substance Use Type: None - Medications Home Medications: Home Medications Medication Instructions Recorded Confirmed Last Taken Type metFORMIN [Glucophage] 500 mg PO BID #20 tablet 01/17/20 Unknown Rx Acetaminophen/Codeine [Tylenol 1 tab PO Q6H PRN #12 tab 05/14/21 Unknown Rx /Codeine # 3 tab] DOXYCYCLINE Hyclate [Vibramycin 100 mg PO Q12HR #14 capsule 05/14/21 Unknown Rx CAP] Fluconazole [Diflucan TAB] 200 mg PO QDAY #1 tablet 05/14/21 Unknown Rx Ibuprofen [Motrin 600 MG tab] 600 mg PO Q8H PRN #30 tablet 05/14/21 Unknown Rx Valacyclovir HCl [Valtrex] 1,000 mg PO Q12H #20 tablet 05/14/21 Unknown Rx ED Physical Exam - General Limitations: No Limitations General appearance: alert, in no apparent distress, obese - Head Head exam: Present: atraumatic, normocephalic, normal inspection - Eye Eye exam: Present: normal appearance, PERRL, EOMI Pupils: Present: normal accommodation - Neck Neck exam: Present: normal inspection, full ROM. Absent: meningismus - Respiratory Respiratory exam: Present: normal lung sounds bilaterally. Absent: respiratory distress, wheezes, rales, rhonchi - Cardiovascular Cardiovascular Exam: Present: regular rate, normal rhythm, normal heart sounds - GI/Abdominal GI/Abdominal exam: Present: soft. Absent: distended, tenderness, guarding, rebound - External exam: Present: lesions (Multiple superficial shallow ulcerated lesions noted to the labia majora, labia minora, and around the introitus with significant tenderness to palpation and mild swelling), other (Cover Machine Operator present) Speculum exam: Present: other (Deferred secondary to patient discomfort and pain down in that area.) Bi-manual exam: Present: other (Deferred secondary to patient significant pain in the vaginal area secondary to her rash) - Back Exam Back exam: Present: normal inspection - Neurological Exam Neurological exam: Present: alert, oriented X3, CN II-XII intact, normal gait - Psychiatric Psychiatric exam: Present: normal affect, normal mood - Skin Skin exam: Present: intact ED Course Vital Signs 05/14/21 05/14/21 05/14/21 12:11 14:08 14:12 Temperature 98.9 F 98.8 F Pulse Rate 98 H Respiratory 18 18 18 Rate Blood Pressure 135/60 190/125 O2 Sat by Pulse 100 100 Oximetry ED Medical Decision Making - Medical Decision Making Patient has multiple superficial small shallow ulcerated areas concerning for genital herpes. No apparent secondary bacterial infection noted. Due to patient discomfort and pain in the vaginal area, she refused speculum exam and so a blind swab was obtained for wet prep. Wet prep was positive for trichomonas. Discussed suspected diagnosis of genital herpes with patient as well as the diagnosis of trichomonas with the patient. Patient will be started on antivirals for genital herpes, and she will be given Flagyl for trichomonas. Patient will be treated prophylactically for gonorrhea chlamydia. She was given IM Rocephin here in the ER today and she will be discharged home with a prescription for doxycycline. Safe sex was discussed with patient. I did recommend that she follows up with [facility] for confirmatory blood test for genital herpes, as well as additional STD testing such as HIV and hepatitis. Patient will be given medication for pain. She expresses understanding of instructions and agree with plan. Patient was stable at time of discharge. Critical care attestation.: If time is entered above; I have spent that time in minutes in the direct care of this critically ill patient, excluding procedure time. ED Disposition Clinical Impression: Genital herpes, Trichomonas vaginalis infection Disposition: HOME / SELF CARE / HOMELESS Is pt being admited?: No Does the pt Need Aspirin: No Condition: Stable Instructions: Genital Herpes, Trichomoniasis Additional Instructions: I recommend that you take the doxycycline and valtrex as prescribed until completion. The doxycycline is to treat for possible chlamydia. And the Valtrex is to treat for the genital herpes. You were treated today with Rocephin for possible gonorrhea and you were treated today with Flagyl for trichomonas. I do recommend that you partner also get tested and treated as well. I do recommend follow-up with your [facility] for additional STD testing including HIV, hepatitis, syphilis and also to have labs drawn to confirm the diagnosis of genital herpes. I recommend using a gentle soap when taking a ba th. Take the pain medication as prescribed. Return to the ER if your symptoms changes or worsens in any way. Prescriptions: Fluconazole [Diflucan TAB] 200 mg PO QDAY #1 tablet Ibuprofen [Motrin 600 MG tab] 600 mg PO Q8H PRN #30 tablet PRN Reason: Pain Acetaminophen/Codeine [Tylenol /Codeine # 3 tab] 1 tab PO Q6H PRN #12 tab PRN Reason: pain Valacyclovir HCl [Valtrex] 1,000 mg PO Q12H #20 tablet DOXYCYCLINE Hyclate [Vibramycin CAP] 100 mg PO Q12HR #14 capsule Referrals: THIERNO RIVERO MD [Staff Physician] - 3-5 Days [facility] [Provider Group] - 3-5 Days [facility] [Provider Group] - 3-5 Days Forms: Work/School Release Form(ED) Time of Disposition: 14:08 Print Language: [place]
[2021-05-14] MEDS ORDERED: LIDOCAINE-MPF (1%) 10 MG/1 ML VIAL 5 ML INFILTRATI ONE (13:34)
[2021-05-14] MEDS ORDERED: metroNIDAZOLE 500 MG TAB PO ONE (14:03)
[2021-05-14 14:11] VITALS: BP 190/125
[2021-05-14 14:33] LABS: HCG Qualitative,Urine Negative (Negative)
[2021-05-14 15:20] LABS: Bilirubin,Urine Negative (Negative); Color,Urine Yellow (Yellow)
[2021-05-14 15:42] LABS: Blood,Urine Negative (Negative); Protein,Urine <15 mg/dL mg/dL (Negative)
[2021-05-14 16:35] LABS: RBC,Urine < 1.0 /HPF (0.0-6.0)
== END 2021-05-14 16:13 | disposition home or self-care (01) ==
LOC: ED 10:59
DX: B00.9 Herpesviral infection, unspecified (principal); A59.01 Trichomonal vulvovaginitis; E11.8 Type 2 diabetes mellitus with unspecified complications; E66.9 Obesity, unspecified; Z88.1 Allergy status to other antibiotic agents
CPT/HCPCS: 81001; 81025; 87210; 87591; 96372; 99284; J0696

== ENCOUNTER 2021-06-04 20:10 | Emergency (ER) | payer BC ==
[2021-06-04 21:06] VITALS: BP 156/86
--- NOTE | 2021-06-04 23:13 | Emergency Department Report ---
ED Female HPI - General Chief complaint: Urogenital-Female Stated complaint: GENITAL DISCOMFORT Time Seen by Provider: 06/04/21 21:22 Source: patient Mode of arrival: Ambulatory Limitations: No Limitations - History of Present Illness Initial comments: This is a 31-year-old female nontoxic, well nourished in appearance, no acute signs of distress presents to the ED with c/o of vaginal itching x several days. Patient denies any vaginal discharge. Patient stated she is not concerned about gonorrhea chlamydia. Patient denies any other symptoms or complaints. Patient denies any vaginal pain or swelling. Patient denies any vaginal ulcers or lesions. Patient denies any nausea, vomiting, chest pain, shortness of breathe, fever, chills, headache, back pain, numbness, tingling, stiff neck. Patient denies any urinary symptoms. Patient stated allergies to clindamycin. Denies any significant past medical history. -: days(s) Radiation: non-radiating Severity scale (0 -10): 0 Improves with: none Worsens with: none Are you Now?: No Associated Symptoms: denies other symptoms. denies: vaginal discharge, vaginal bleeding, abdominal pain, nausea/vomiting, fever/chills, headaches, dysuria, hematuria, rash, seizure, shortness of breath, syncope, weakness - Related Data Previous Rx's Medication Instructions Recorded Last Taken Type metFORMIN [Glucophage] 500 mg PO BID #20 tablet 01/17/20 Unknown Rx Acetaminophen/Codeine [Tylenol 1 tab PO Q6H PRN #12 tab 05/14/21 Unknown Rx /Codeine # 3 tab] DOXYCYCLINE Hyclate [Vibramycin 100 mg PO Q12HR #14 capsule 05/14/21 Unknown Rx CAP] Fluconazole [Diflucan TAB] 200 mg PO QDAY #1 tablet 05/14/21 Unknown Rx Ibuprofen [Motrin 600 MG tab] 600 mg PO Q8H PRN #30 tablet 05/14/21 Unknown Rx Valacyclovir HCl [Valtrex] 1,000 mg PO Q12H #20 tablet 05/14/21 Unknown Rx Sulfamethoxazole/Trimethoprim 1 each PO BID #14 tablet 06/04/21 Unknown Rx [Bactrim DS TAB] metroNIDAZOLE [Flagyl] 500 mg PO Q12HR #14 tab 06/04/21 Unknown Rx Allergies Allergy/AdvReac Type Severity Reaction Status Date / Time clindamycin Allergy Unknown Verified 01/17/20 11:18 ED Review of Systems ROS: Stated complaint: GENITAL DISCOMFORT Other details as noted in HPI Comment: All other systems reviewed and negative Constitutional: denies: chills, fever Eyes: denies: eye pain, eye discharge, vision change ENT: denies: ear pain, throat pain Respiratory: denies: cough, shortness of breath, wheezing Cardiovascular: denies: chest pain, palpitations Endocrine: no symptoms reported Gastrointestinal: denies: abdominal pain, nausea, diarrhea Genitourinary: denies: urgency, dysuria, discharge Musculoskeletal: denies: back pain, joint swelling, arthralgia Skin: denies: rash, lesions Neurological: denies: headache, weakness, paresthesias Psychiatric: denies: anxiety, depression Hematological/Lymphatic: denies: easy bleeding, easy bruising ED Past Medical Hx - Past Medical History Previous Medical History?: Yes Hx Diabetes: Yes (pre dm) Additional medical history: obese - Surgical History Past Surgical History?: No - Social History Smoking Status: Never Smoker Substance Use Type: None - Medications Home Medications: Home Medications Medication Instructions Recorded Confirmed Last Taken Type metFORMIN [Glucophage] 500 mg PO BID #20 tablet 01/17/20 Unknown Rx Acetaminophen/Codeine [Tylenol 1 tab PO Q6H PRN #12 tab 05/14/21 Unknown Rx /Codeine # 3 tab] DOXYCYCLINE Hyclate [Vibramycin 100 mg PO Q12HR #14 capsule 05/14/21 Unknown Rx CAP] Fluconazole [Diflucan TAB] 200 mg PO QDAY #1 tablet 05/14/21 Unknown Rx Ibuprofen [Motrin 600 MG tab] 600 mg PO Q8H PRN #30 tablet 05/14/21 Unknown Rx Valacyclovir HCl [Valtrex] 1,000 mg PO Q12H #20 tablet 05/14/21 Unknown Rx Sulfamethoxazole/Trimethoprim 1 each PO BID #14 tablet 06/04/21 Unknown Rx [Bactrim DS TAB] metroNIDAZOLE [Flagyl] 500 mg PO Q12HR #14 tab 06/04/21 Unknown Rx ED Physical Exam - General Limitations: No Limitations General appearance: alert, in no apparent distress - Head Head exam: Present: atraumatic, normocephalic - Eye Eye exam: Present: normal appearance - Neck Neck exam: Present: normal inspection, full ROM. Absent: lymphadenopathy - Respiratory Respiratory exam: Absent: respiratory distress - Cardiovascular Cardiovascular Exam: Present: regular rate - GI/Abdominal GI/Abdominal exam: Present: soft. Absent: distended, tenderness - Extremities Exam Extremities exam: Present: full ROM - Back Exam Back exam: Present: full ROM - Neurological Exam Neurological exam: Present: alert, oriented X3, normal gait - Psychiatric Psychiatric exam: Present: normal affect, normal mood - Skin Skin exam: Present: warm, dry, intact, normal color. Absent: rash ED Course Vital Signs 06/04/21 06/04/21 21:05 21:06 Temperature 98.6 F Pulse Rate 98 H Respiratory 16 Rate Blood Pressure 156/86 O2 Sat by Pulse 99 Oximetry - Reevaluation(s) Reevaluation #1: 06/04/21 23:12 Patient is speaking in full sentences with no signs of distress noted. ED Medical Decision Making - Lab Data Lab Results 06/04/21 Range/Units Unknown Urine Color Yellow (Yellow) Urine Turbidity Slightly-cloudy (Clear) Urine pH 5.0 (5.0-7.0) Ur Specific [place] 1.014 (1.003-1.030) Urine Protein 30 mg/dl (Negative) mg/dL Urine Glucose (UA) 50 (Negative) mg/dL Urine Ketones Neg (Negative) mg/dL Urine Blood Sm (Negative) Urine Nitrite Neg (Negative) Ur Reducing Substances Not Reportable Urine Bilirubin Neg (Negative) Urine Ictotest Not Reportable Urine Urobilinogen < 2.0 (<2.0) mg/dL Ur Leukocyte Esterase Neg (Negative) Urine WBC (Auto) 18.0 H (0.0-6.0) /HPF Urine RBC (Auto) 1.0 (0.0-6.0) /HPF U Epithel Cells (Auto) < 1.0 (0-13.0) /HPF Urine Bacteria (Auto) 1+ (Negative) /HPF Urine Mucus Few /HPF Urine Yeast (Budding) Few /HPF Urine HCG, Qual Negative (Negative) - Medical Decision Making 31-year-old female that presents with bacterial vaginosis and UTI. Patient is stable and was examined by me. Patient refused a pelvic exam even after instructed and educated patient's my concerns for further evaluation but patient stated she would rather do a self swab. RN was present during this time as well. Patient be treated with Flagyl. Patient was instructed to follow-up with a primary care doctor in 3-5 days or if symptoms worsen and continue return to emergency room as soon as possible. At time of discharge, the patient does not seem toxic or ill in appearance. No acute signs of distress noted. Patient agrees to discharge treatment plan of care. No further questions noted by the patient. Critical care attestation.: If time is entered above; I have spent that time in minutes in the direct care of this critically ill patient, excluding procedure time. ED Disposition Clinical Impression: Bacterial vaginosis UTI (urinary tract infection) Qualifiers: Urinary tract infection type: acute cystitis Hematuria presence: with hematuria Qualified Code(s): N30.01 - Acute cystitis with hematuria Disposition: HOME / SELF CARE / HOMELESS Is pt being admited?: No Does the pt Need Aspirin: No Condition: Stable Instructions: Bacterial Vaginosis, Urinary Tract Infection, Adult, [id number], Metronidazole tablets or capsules, Bacterial Vaginosis (ED) Additional Instructions: Follow-up with a primary care doctor in 3-5 days or if symptoms worsen and continue return to emergency room as soon as possible. Prescriptions: Sulfamethoxazole/Trimethoprim [Bactrim DS TAB] 1 each PO BID #14 tablet metroNIDAZOLE [Flagyl] 500 mg PO Q12HR #14 tab Referrals: PRIMARY MD FILEMON [Referring] - 3-5 Days HOUSTON BROOKS MD [Staff Physician] - 3-5 Days Forms: Work/School Release Form(ED) Time of Disposition: 23:42
[2021-06-04 23:30] LABS: HCG Qualitative,Urine Negative (Negative)
[2021-06-04 23:31] LABS: Bacteria,Urine 1+ /HPF (Negative); Bilirubin,Urine NEG (Negative); Color,Urine Yellow (Yellow); Urobilinogen,Urine < 2.0 mg/dL (<2.0)
[2021-06-04 23:36] LABS: Blood,Urine SM (Negative); Mucus,Urine FEW /HPF
== END 2021-06-05 00:39 | disposition home or self-care (01) ==
LOC: ED 20:10
DX: N77.1 Vaginitis, vulvitis and vulvovaginitis in diseases classified elsewhere (principal); N39.0 Urinary tract infection, site not specified; Z88.1 Allergy status to other antibiotic agents
CPT/HCPCS: 81001; 81025; 87086; 87210; 99283

== ENCOUNTER 2021-12-14 13:57 | Emergency (ER) | payer SELFPAY ==
[2021-12-14 15:01] VITALS: BP 135/74
[2021-12-14 16:03] LABS: Basophils % (Auto) 0.3 % (0.0-1.8); Eosinophils # (Auto) 0.1 K/mm3 (0.0-0.4); Eosinophils % (Auto) 0.6 % (0.0-4.3); Hematocrit 39.8 % (30.3-42.9); Hemoglobin 12.5 gm/dl (10.1-14.3); Lymphocytes # (Auto) 3.3 K/mm3 (1.2-5.4); Mean Corpuscular HGB Conc 31 % (30-34); Mean Corpuscular Volume 81 fl (79-97); Monocytes # (Auto) 0.8 K/mm3 (0.0-0.8); Monocytes % (Auto) 6.3 % (0.0-7.3); Platelet Count 293 K/mm3 (140-440); Red Blood Count 4.92 M/mm3 (3.65-5.03); Red Cell Distribution Width 14.2 % (13.2-15.2)
[2021-12-14 16:40] LABS: Alanine Aminotransferase 17 units/L (7-56); Albumin 3.9 g/dL (3.9-5); BUN/Creatinine Ratio 15; Bilirubin,Direct < 0.2 mg/dL (0-0.2); Blood Urea Nitrogen 9 mg/dL (7-17); Calcium 9.5 mg/dL (8.4-10.2); Hemolysis Index 0
[2021-12-14 19:02] LABS: Bacteria,Urine 1+ /HPF (Negative); Bilirubin,Urine NEG (Negative); Blood,Urine NEG (Negative); Color,Urine Yellow (Yellow); HCG Qualitative,Urine Negative (Negative); Protein,Urine <15 mg/dL mg/dL (Negative); Urobilinogen,Urine < 2.0 mg/dL (<2.0)
--- NOTE | 2021-12-14 19:33 | Emergency Department Report ---
ED General Adult HPI - General Chief complaint: Abdominal Pain Stated complaint: CRAMP LEGS/HIGH GLUCOSE Time Seen by Provider: 12/14/21 18:03 Source: patient Mode of arrival: Ambulatory Limitations: No Limitations - History of Present Illness Initial comments: 31-year-old female with elevated BMI and with diabetes presents emerged department complaining vague abdominal discomfort associated with probably dysuria, polyuria occasional weakness without chest pain shortness of breath, fever, chills, sweats which has been going on off and on for the last 2 months. States she normally takes Glucophage 500 mg twice a day but has been trying to reestablish with another primary care provider -: Gradual Radiation: non-radiation Severity scale (0 -10): 5 Quality: dull Consistency: constant Improves with: none Worsens with: none Associated Symptoms: malaise. denies: confusion, chest pain, shortness of breath, syncope Treatments Prior to Arrival: none - Related Data Previous Rx's Medication Instructions Recorded Last Taken Type Acetaminophen/Codeine [Tylenol 1 tab PO Q6H PRN #12 tab 05/14/21 Unknown Rx /Codeine # 3 tab] DOXYCYCLINE Hyclate [Vibramycin 100 mg PO Q12HR #14 capsule 05/14/21 Unknown Rx CAP] Ibuprofen [Motrin 600 MG tab] 600 mg PO Q8H PRN #30 tablet 05/14/21 Unknown Rx Valacyclovir HCl [Valtrex] 1,000 mg PO Q12H #20 tablet 05/14/21 Unknown Rx Sulfamethoxazole/Trimethoprim 1 each PO BID #14 tablet 06/04/21 Unknown Rx [Bactrim DS TAB] metroNIDAZOLE [Flagyl] 500 mg PO Q12HR #14 tab 06/04/21 Unknown Rx Fluconazole [Diflucan TAB] 200 mg PO QDAY #1 tablet 12/14/21 Unknown Rx metFORMIN [Glucophage] 500 mg PO BID #20 tablet 12/14/21 Unknown Rx Allergies Allergy/AdvReac Type Severity Reaction Status Date / Time clindamycin Allergy Unknown Verified 12/14/21 15:21 ED Review of Systems ROS: Stated complaint: CRAMP LEGS/HIGH GLUCOSE Other details as noted in HPI Comment: All other systems reviewed and negative ED Past Medical Hx - Past Medical History Hx Diabetes: Yes (pre dm) Additional medical history: obese - Social History Smoking Status: Never Smoker Substance Use Type: None - Medications Home Medications: Home Medications Medication Instructions Recorded Confirmed Last Taken Type Acetaminophen/Codeine [Tylenol 1 tab PO Q6H PRN #12 tab 05/14/21 Unknown Rx /Codeine # 3 tab] DOXYCYCLINE Hyclate [Vibramycin 100 mg PO Q12HR #14 capsule 05/14/21 Unknown Rx CAP] Ibuprofen [Motrin 600 MG tab] 600 mg PO Q8H PRN #30 tablet 05/14/21 Unknown Rx Valacyclovir HCl [Valtrex] 1,000 mg PO Q12H #20 tablet 05/14/21 Unknown Rx Sulfamethoxazole/Trimethoprim 1 each PO BID #14 tablet 06/04/21 Unknown Rx [Bactrim DS TAB] metroNIDAZOLE [Flagyl] 500 mg PO Q12HR #14 tab 06/04/21 Unknown Rx Fluconazole [Diflucan TAB] 200 mg PO QDAY #1 tablet 12/14/21 Unknown Rx metFORMIN [Glucophage] 500 mg PO BID #20 tablet 12/14/21 Unknown Rx ED Physical Exam - General Limitations: No Limitations General appearance: alert, in no apparent distress - Head Head exam: Present: atraumatic, normocephalic - Eye Eye exam: Present: normal appearance, PERRL, EOMI Pupils: Present: normal accommodation - ENT ENT exam: Present: normal exam, normal orophraynx, mucous membranes moist, TM's normal bilaterally - Neck Neck exam: Present: normal inspection, full ROM - Respiratory Respiratory exam: Present: normal lung sounds bilaterally. Absent: respiratory distress, wheezes, rales, accessory muscle use, decreased breath sounds - Cardiovascular Cardiovascular Exam: Present: regular rate, normal rhythm. Absent: systolic murmur, diastolic murmur, rubs, gallop - GI/Abdominal GI/Abdominal exam: Present: soft, normal bowel sounds - Extremities Exam Extremities exam: Present: normal inspection, normal capillary refill - Back Exam Back exam: Present: normal inspection. Absent: CVA tenderness (R), CVA tenderness (L) - Neurological Exam Neurological exam: Present: alert, oriented X3, CN II-XII intact, normal gait - Psychiatric Psychiatric exam: Present: normal affect, normal mood. Absent: anxious, manic - Skin Skin exam: Present: warm, dry, intact, normal color. Absent: rash ED Course Vital Signs 12/14/21 14:58 Temperature 98.3 F Pulse Rate 96 H Respiratory 16 Rate Blood Pressure 135/74 [Left] O2 Sat by Pulse 95 Oximetry ED Medical Decision Making - Lab Data Result diagrams: 12/14/21 15:33 12/14/21 15:33 Critical care attestation.: If time is entered above; I have spent that time in minutes in the direct care of this critically ill patient, excluding procedure time. ED Disposition Clinical Impression: Hyperglycemia Disposition: HOME / SELF CARE / HOMELESS Is pt being admited?: No Does the pt Need Aspirin: No Condition: Stable Instructions: Hyperglycemia, [id number], Blood Glucose Monitoring, Adult, Abdominal Pain (ED) Additional Instructions: Evaluate emergency department today for hypoglycemia blood sugar found to be encroaching upon 400 and then decreased under 300 there was no emergent causes associated with your hyperglycemia and the symptoms that you have been that she reports has been going on for over the last couple weeks seem to correlate with the of hyperglycemia. It is imperative that you restart taking your with your Glucophage that you have been without for the last 2 months. Although you did not have a urinary tract infection there are some yeast particles in your urine and you will be prescribed medication to help treat that as well as that could worsen given the current condition your diabetes. Prescriptions: Fluconazole [Diflucan TAB] 200 mg PO QDAY #1 tablet metFORMIN [Glucophage] 500 mg PO BID #20 tablet Referrals: PRIMARY CAREMD [Primary Care Provider] - 3-5 Days SHAY JORDAN MD [Staff Physician] - 3-5 Days
== END 2021-12-14 19:59 | disposition home or self-care (01) ==
LOC: ED 13:57
DX: E11.65 Type 2 diabetes mellitus with hyperglycemia (principal); Z88.1 Allergy status to other antibiotic agents
CPT/HCPCS: 36415; 80048; 80076; 81001; 81025; 82962; 83690; 85025; 87086; 99283